=== PATIENT | male | born 1955 | race Caucasian/White ===

== ENCOUNTER 2020-03-22 23:48 | Emergency (ER) | payer SELFPAY ==
[2020-03-23] MEDS ORDERED: Tranexamic Acid 1,000 MG in Sodium Chloride 0.9% 100 ML IV ONE (00:30)
[2020-03-23] MEDS ORDERED: Sodium Chloride 0.9% 1,000 ML IV ONE (00:30)
--- NOTE | 2020-03-23 00:31 | EDM.PDOC ---
ED HPI GENERAL MEDICAL PROBLEM - General Chief Complaint: Back Pain or Injury Stated Complaint: FALL Time Seen by Provider: 03/23/20 00:24 Source of Information: Reports: Patient History Limitations: Reports: Intoxication - History of Present Illness Onset: Today lower back Pain Score (Numeric/FACES): 10 - Related Data Allergies Allergy/AdvReac Type Severity Reaction Status Date / Time bupropion [From Wellbutrin] Allergy Itching Verified 03/22/20 23:58 Home Meds: Home Meds carvediloL [Carvedilol] 6.25 mg PO DAILY 03/22/20 [History] lisinopriL [Lisinopril] 5 mg PO DAILY 03/22/20 [History] Past Medical History HEENT History: Reports: None Cardiovascular History: Reports: Hypertension, [place], Stents Respiratory History: Reports: None Gastrointestinal History: Reports: None Genitourinary History: Reports: None Musculoskeletal History: Reports: None Neurological History: Reports: None Psychiatric History: Reports: None Endocrine/Metabolic History: Reports: None 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 Hematologic History: Reports: None Immunologic History: Reports: None Oncologic (Cancer) History: Reports: None Dermatologic History: Reports: None - Infectious Disease History Infectious Disease History: Reports: None - Past Surgical History Head Surgeries/Procedures: Reports: None Social & Family History - Family History Family Medical History: Noncontributory - Tobacco Use Smoking Status *Q: Current Every Day Smoker Years of Tobacco use: 1 Packs/Tins Daily: 40 - Caffeine Use Caffeine Use: Reports: Coffee - Recreational Drug Use Recreational Drug Use: No ED ROS GENERAL - Review of Systems Review Of Systems: Comprehensive ROS is negative, except as noted in HPI. ED EXAM,LOWER BACK PAIN/INJURY - Physical Exam Exam: See Below Exam Limited By: No Limitations (Patient is extremely hard of hearing.) General Appearance: Moderate Distress Throat/Mouth: Normal Oropharynx Head: Atraumatic, Normocephalic Neck: Normal Inspection, Supple, Non-Tender Respiratory/Chest: Respiratory Distress, Decreased Breath Sounds, Crackles, Other (Patient has extensive crepitus throughout his posterior and anterior chest wall.) Cardiovascular: Regular Rate, Rhythm GI/Abdominal: Normal Bowel Sounds, Soft, Non-Tender, No Distention Back Exam: Other (Extensive crepitus particularly on left side of posterior back wall and chest wall) Extremities: Normal Inspection, Normal Range of Motion Neurological: Alert Psychiatric: Normal Affect Skin Exam: Warm ED LACERATION/WOUND PROCEDURES - Additional/Other Procedure(s) Other (Free Text) Procedure(s): Patient had a chest tube which was a 24 Macedonian placed on his left chest wall midaxillary line at the level of his nipple. There was moderate to severe crepitus in his chest wall at that time. Using sterile technique patient was anesthetized using 1% lidocaine with epinephrine approximately 10 cc being used and an 15 blade was used to get down to his rib and then a Mcdaniels clamp was used to open his pleura and then the 24 Macedonian tube was placed. This was a size recommended by Dr. Leigh. Patient had received Dilaudid and some morphine prior and during procedure. Tolerated this fairly well. Is a big return of air and with the chest tube in place he also had hernesto return of blood. Patient had been given some TXA early in his ER course. Chest tube was sutured in place using 2-0 silk and then further secured with Betadine Vaseline gauze around the tube and then some packing with Microfoam tape. Patient's vital signs remained stable throughout the course. Chest x-ray shows chest tube is in place. Course - Vital Signs Text/Narrative:: After chest tube was placed since patient has a comminuted eighth rib fracture with a fracture segment protruding into the pleura it was felt by Dr. Leigh that he needed to be transferred because he would require thoracic surgery to fix this injury. I discussed the patient with Dr. Bergman at [facility] who is accepted him for transfer. The trauma surgeon reviewed his CT scan and chest x-ray and felt that the patient could go by ground. His vital signs remained stable or had improved throughout his ER course. Last Recorded V/S: Last Vital Signs Temp 36.2 C 03/23/20 02:30 Pulse 86 03/23/20 02:30 Resp 18 03/23/20 02:30 BP 139/60 03/23/20 02:30 Pulse Ox 99 03/23/20 02:30 - Orders/Labs/Meds Labs: Laboratory Tests 03/23/20 03/23/20 03/23/20 Range/Units 00:20 00:30 00:30 WBC 18.07 H (4.0-11.0) K/uL RBC 4.07 L (4.50-5.90) M/uL Hgb 13.6 (13.0-17.0) g/dL Hct 38.9 (38.0-50.0) % MCV 95.6 (80.0-98.0) fL MCH 33.4 H (27.0-32.0) pg MCHC 35.0 (31.0-37.0) g/dL RDW Std Deviation 45.0 (28.0-62.0) fl RDW Coeff of Christa 13 (11.0-15.0) % Plt Count 246 (150-400) K/uL MPV 9.90 (7.40-12.00) fL Neut % (Auto) 71.2 (48.0-80.0) % Lymph % (Auto) 17.0 (16.0-40.0) % Sterling % (Auto) 7.4 (0.0-15.0) % Eos % (Auto) 4.2 (0.0-7.0) % Baso % (Auto) 0.2 (0.0-1.5) % Neut # (Auto) 12.9 H (1.4-5.7) K/uL Lymph # (Auto) 3.1 H (0.6-2.4) K/uL Sterling # (Auto) 1.3 H (0.0-0.8) K/uL Eos # (Auto) 0.8 H (0.0-0.7) K/uL Baso # (Auto) 0.0 (0.0-0.1) K/uL INR 0.93 APTT 23.1 (18.6-31.3) SEC Sodium 134 L (136-148) mmol/L Potassium 4.0 (3.5-5.1) mmol/L Chloride 98 (98-107) mmol/L Carbon Dioxide 28.8 (21.0-32.0) mmol/L BUN 13 (7.0-18.0) mg/dL Creatinine 0.9 (0.8-1.3) mg/dL Est Cr Clr Drug Dosing TNP Estimated GFR (MDRD) > 60.0 ml/min Glucose 114 H (74-106) mg/dL Calcium 8.9 (8.5-10.1) mg/dL Total Bilirubin 0.2 (0.2-1.0) mg/dL AST 45 H (15-37) IU/L ALT 55 (14-63) IU/L Alkaline Phosphatase 92 (46-116) U/L Total Protein 7.1 (6.4-8.2) g/dL Albumin 3.9 (3.4-5.0) g/dL Globulin 3.2 (2.6-4.0) g/dL Albumin/Globulin Ratio 1.2 (0.9-1.6) Ethyl Alcohol 55 mg/dL Meds: Medications Discontinued Medications Generic Name Dose Route Start Last Admin Trade Name Freq PRN Reason Stop Dose Admin Hydromorphone HCl 1 mg 03/23/20 00:40 03/23/20 00:48 Dilaudid IVPUSH 03/23/20 00:41 1 mg ONETIME ONE Administration Hydromorphone HCl 1 mg 03/23/20 02:11 03/23/20 02:42 Dilaudid IVPUSH 03/23/20 02:12 1 mg ONETIME ONE Administration Sodium Chloride 1,000 mls @ 999 mls/hr 03/23/20 00:30 03/23/20 00:47 Normal Saline IV 03/23/20 01:30 999 mls/hr .BOLUS ONE Administration Tranexamic Acid 1,000 mg/ 110 mls @ 600 mls/hr 03/23/20 00:30 03/23/20 00:51 Sodium Chloride IV 03/23/20 00:40 600 mls/hr ONETIME ONE Administration Iopamidol 100 ml 03/23/20 02:16 03/23/20 02:17 Isovue-370 (76%) IVPUSH 03/23/20 02:17 100 ml ONETIME STA Administration Lidocaine/Epinephrine 20 ml 03/23/20 01:57 03/23/20 02:40 Xylocaine 1% With Epinephrine 1:100,000 INJECT 03/23/20 01:58 20 ml ONETIME ONE Administration Morphine Sulfate Confirm 03/23/20 02:25 03/23/20 02:41 Morphine Administered 03/23/20 02:26 Not Given Dose 4 mg .ROUTE .STK-MED ONE Morphine Sulfate 4 mg 03/23/20 02:40 03/23/20 02:41 Morphine IVPUSH 03/23/20 02:41 4 mg ONETIME ONE Administration Tranexamic Acid Confirm 03/23/20 00:38 03/23/20 00:52 Cyklokapron Administered 03/23/20 00:39 Not Given Dose 1,000 mg .ROUTE .STK-MED ONE Departure - Departure Time of Disposition: 02:30 Disposition: DC/Tfer to Acute Hospital 02 Clinical Impression: Pneumothorax on left, Left rib fracture, Trauma of chest - Discharge Information Referrals: PCP,None [Primary Care Provider] - Forms: ED Department Discharge Sepsis Event Note - Evaluation Sepsis Screening Result: No Definite Risk - Focused Exam Date Exam was Performed: 03/25/20 Time Exam was Performed: 00:19
[2020-03-23] MEDS ORDERED: HYDROmorphone 2 MG/ML Syringe IVPUSH ONE (00:40)
[2020-03-23 00:57] LABS: BLOOD UREA NITROGEN,BUN 13 mg/dL (7.0-18.0); CARBON DIOXIDE,CO2 28.8 mmol/L (21.0-32.0); CHLORIDE,CL 98 mmol/L (98-107); GLUCOSE RANDOM 114 mg/dL (74-106); SODIUM,NA 134 mmol/L (136-148)
--- NOTE | 2020-03-23 01:36 | CT ---
INDICATION: Chest trauma. Crepitus TECHNIQUE: CT chest without i.v. contrast. Coronal and sagittal reformats were obtained. COMPARISON: None FINDINGS: Cardiovascular: The heart has an unremarkable appearance and size. The pulmonary arteries are unremarkable in appearance. No sign of aneurysm seen in the thoracic aorta. The presence of aortic dissection cannot be evaluated without the use of intravenous contrast. Moderate atherosclerotic calcifications are noted in the coronary arteries. Mediastinum: Moderate pneumomediastinum is present. Lung: A moderate left anterior pneumothorax is present with maximal pleural separation of 3.7 cm. There is an 8 mm nodule in the left apex on image 18. Pleura and pericardium: No sign of pleural effusion seen. No significant pericardial effusion is present. Chest wall and axilla: Large amount of subcutaneous emphysema is present the left chest wall and neck. Bone: There is a comminuted fracture of the left posterior 8th rib with an osseous fragment measuring 2.3 cm penetrating the superior segment of the left lower lobe. IMPRESSIONS: 1. A moderate left anterior pneumothorax is present with maximal pleural separation of 3.7 cm. 2. There is a comminuted fracture of the left posterior 8th rib with an osseous fragment measuring 2.3 cm penetrating the superior segment of the left lower lobe. 3. Moderate atherosclerotic calcifications are noted in the coronary arteries. 4. There is an 8 mm nodule in the left apex on image 18. Initial followup chest CT in 6-12 months and subsequent followup at 18-24 months is advised in accordance with the 2017 Revised Fleischner Society Recommendations. The findings were discussed with Dr. Evans at 1:34 AM. Dictated by Randall Gonzalez MD @ 03/23/2020 1:34:30 AM Please note that all CT scans at this facility use dose modulation, iterative reconstruction, and/or weight-based dosing when appropriate to reduce radiation dose to as low as reasonably achievable. Dictated by: Randall Gonzalez MD @ 03/23/2020 01:34:40 (Electronically Signed)
--- NOTE | 2020-03-23 01:38 | CT ---
INDICATION: Abdominal trauma. Crepitus TECHNIQUE: CT Abdomen and pelvis with i.v. contrast. Coronal and sagittal reformats were obtained. CONTRAST: 100 mL Isovue 370 COMPARISON: None FINDINGS: Lower chest: Left anterior basilar pneumothorax and pneumomediastinum present and discussed on separate report. Liver: There is a 1.3 cm cyst in the left lateral segment of the liver. Spleen: Unremarkable. Pancreas: Unremarkable. Gallbladder: Unremarkable. Kidney: Unremarkable. No kidney or ureteral stones or obstruction seen. Adrenal: Unremarkable. Bowel: Mild fluid distention of the stomach is present. Mild diverticulosis of the sigmoid colon is seen. The appendix is not identified. Vascular: Moderate diffuse atherosclerotic calcifications of the abdominal aorta and its tributaries are present. Lymph: Unremarkable. Peritoneum: Unremarkable. No pneumoperitoneum is seen. No significant ascites is noted. Pelvis: Mild to moderate distention of the bladder is noted. Soft tissue: Large amount subcutaneous gas is seen tracking into the left hemiscrotum. Bone: No acute osseous injuries are identified. IMPRESSION: 1. Large amount subcutaneous gas is seen tracking into the left hemiscrotum. Dictated by Randall Gonzalez MD @ 03/23/2020 1:37:30 AM Please note that all CT scans at this facility use dose modulation, iterative reconstruction, and/or weight-based dosing when appropriate to reduce radiation dose to as low as reasonably achievable. Dictated by: Randall Gonzalez MD @ 03/23/2020 01:37:39 (Electronically Signed)
[2020-03-23] MEDS ORDERED: Lidocaine 1% with EPINEPHrine 1:100,000 20 ML MDV INJECT ONE (01:57)
[2020-03-23] MEDS ORDERED: HYDROmorphone 1 MG/ML Syringe IVPUSH ONE (02:11)
[2020-03-23] MEDS ORDERED: Iopamidol 755 Mg/ML 100 ML Bottle IVPUSH STA (02:16)
[2020-03-23] MEDS ORDERED: Morphine 4 MG/ML Syringe ONE (02:25)
[2020-03-23] MEDS ORDERED: Morphine 4 MG/ML Syringe IVPUSH ONE (02:40)
--- NOTE | 2020-03-23 03:41 | CR ---
INDICATION: Pneumothorax, status post chest tube placement TECHNIQUE: Portable upright frontal view of the chest. COMPARISON: CT chest without contrast 03/23/2020 FINDINGS/IMPRESSION: : 1. Left chest tube is in place. Left pneumothorax is decreased in size with approximately 1 cm of residual apical pleural separation. 2. Again demonstrated is extensive subcutaneous emphysema of the chest wall and base of the neck, worse on the left. Displaced fracture of the posterior left 8th rib is noted. 3. The lungs remain aerated. There is no pleural effusion. Dictated by Zenon Blas MD @ Mar 23 2020 3:36AM Signed by Dr. Zenon Blas @ Mar 23 2020 3:39AM
== END 2020-03-23 03:15 ==
LOC: MW.ED 23:48
DX: S22.32XA Fracture of one rib, left side, initial encounter for closed fracture (principal); S27.0XXA Traumatic pneumothorax, initial encounter; I10 Essential (primary) hypertension; I25.2 Old myocardial infarction; F17.210 Nicotine dependence, cigarettes, uncomplicated; Z95.5 Presence of coronary angioplasty implant and graft; Z88.8 Allergy status to other drugs, medicaments and biological substances; Z79.899 Other long term (current) drug therapy; W01.0XXA Fall on same level from slipping, tripping and stumbling without subsequent striking against object, initial encounter
CPT/HCPCS: 32551; 36415; 71045; 71250; 74177; 80053; 80307; 85025; 85610; 85730; 96374; 96375; 96376; 99285; J1170; J2270; J7030; J7050; Q9967; 99284